=== PATIENT | female | born 1965 | race Caucasian/White ===

== ENCOUNTER → 2018-08-01 09:47 | Day surgery (SDC) | payer OTHER ==
--- NOTE | 2018-08-01 09:15 | HP ---
HISTORY AND PHYSICAL: DATE OF ADMISSION: 08/01/18. HISTORY OF PRESENT ILLNESS: Yanick is a 53-year-old active woman who slipped and twisted her right ankle sustaining a bimalleolar ankle fracture. This was a week ago. She was seen at [facility] emergency room and splinted and is here for followup. She has been mostly nonweightbearing. Pain is quite significant using the splint. She removed the splint herself and she felt it was not helping and she was worried about toe swelling. Her radiographs revealed a displaced bimalleolar ankle fracture, and she is scheduled for surgical repair through the office today. Yanick has a consistent habit of smoking a half to a full packet a day. She is otherwise not on any medication. She has an allergy to PENICILLIN and SULFA. She has been taking naproxen for pain. She denies issues with high blood pressure, pulmonary issues, high cholesterol. No hepatitis, no diverticulitis, no ulcers. No seizures, dizziness, or lightheadedness. No depression or anxiety. 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 She does smoke REVIEW OF SYSTEMS: Negative for all systems except previous fracture, some rashes, skin lesions, and seasonal allergies. PHYSICAL EXAMINATION GENERAL: Yanick is a healthy appearing 53-year-old with slight stigmata of smoking, in no acute distress. VITAL SIGNS: She is 5 feet 9 inches, 193 pounds. Blood pressure 130/70. NECK: Supple. LUNGS: Her chest exam is clear. Occasional end inspiratory wheezing. HEART: She has a regular rate to the cardiac exam without extra sounds noted. ABDOMEN: Her abdomen is large, flat, nontender, soft. EXTREMITIES: Exam shows her to have significant ecchymosis along her medial pickard. GENITOURINARY: Deferred. RECTAL: Deferred. SKIN: Intact. There is some displacement laterally through the ankle with some tenting of the skin medially. She has a warm sensate foot. DIAGNOSTIC STUDIES/DATA REVIEW: Her radiographs show a displaced bimalleolar ankle fracture. IMPRESSION AND PLAN: I gave Yanick a compressive Snow type dressing and tried to mold her 1 step into better varus. She has a displaced ankle fracture and will need to have this fixed in the next day or so. This will be scheduled through the office. [id number] #: [id number] [facility]
[~2018-08-01 09:47] MED LIST: Buffered Lidocaine 1% SYRIN* 1 ML/SYRINGE INTRADERM ONE; Bupivacaine 0.5%* 50 ML VIAL ONE; Clindamycin 900 MG/D5W BAG(*) 900 MG/50 ML BAG IVPB ONE; Dexamethasone IV* 4 MG/ML 1 ML (4 MG) ONE; Ketorolac INJ* 30 MG/ML 1 ML VIAL ONE; Lactated Ringers 1000 ML Bag* 1,000 ML IV SCH; Levalbuterol 0.63MG/3ML NEB* UNIT OF USE INH ONE; Lidocaine 2% PF * 5 ML VIAL ONE; Midazolam* 1 MG/ML 2 ML VIAL (2 MG) ONE; Naloxone* 0.4 MG/ML 1 ML VIAL IV PRN; Ondansetron INJ* 2 MG/ML VIAL IV PRN; Propofol* 10 MG/ML 20 ML BTL ONE; Sodium Citrate/Citric Acid* 15 ML UDC ONE; Sodium Citrate/Citric Acid* 15 ML UDC PO ONE; fentaNYL* 50 MCG/ML 2 ML VIAL (100 MCG VIAL) IV PRN; fentaNYL* 50 MCG/ML 2 ML VIAL (100 MCG VIAL) ONE; hydrALAZINE IV* 20 MG/ML VIAL ONE
[2018-08-01 15:08] VITALS: BP 157/87
--- NOTE | 2018-08-01 16:44 | OP ---
Operative Report - Blank - Operative Report Date of Operation: 08/01/18 Note: PATIENT: Yanick Ngo DATE OF : 1965 DATE OF SURGERY: 08/01/2018 SURGEON: Praful Garcia MD SUPERVISOR STONE: ANDREWS Horn, whos assistance was necessary for positioning, retraction, help with instrumentation, and closure. ANESTHESIOLOGIST: Dr. Sanchez PREOPERATIVE DIAGNOSIS: Right bimalleolar ankle fracture POSTOPERATIVE DIAGNOSIS: Right bimalleolar ankle fracture and distal tib-fib syndesmotic disruption. OPERATION: 1. Right bimalleolar ankle fracture open reduction and internal fixation. 2. Right distal tib-fib syndesmotic open reduction and internal fixation. ANESTHESIA: General IMPLANTS: [place] ankle fracture set plate and screws TOURNIQUET TIME: Less than 1 hour with a well-padded thigh tourniquet at 250mmHg SPECIMENS: none ESTIMATED BLOOD LOSS: minimal COMPLICATIONS: none STATUS: Stable from the operating room to the recovery room and then home. INDICATIONS FOR PROCEDURE: Yanick sustained a displaced right bimalleolar ankle fracture. She does have a history of a prior right bimalleolar ankle fracture, treated with ORIF and subsequent removal of hardware. Both operative and non operative treatment alternatives were reviewed. Further, the nature and risks of surgery were reviewed in careful detail. Our discussions regarding the risks of surgery included, but were not limited to, infection, wound problems, nerve injury, neuroma, RSD, persistent symptoms, blood clot, nonunion, malunion, post- traumatic arthritis, hardware failure, failure of the surgery, and even the remote chance of catastrophic complication, including loss of limb. DESCRIPTION OF PROCEDURE: The patient was seen in the preoperative holding unit and informed written consent was obtained. The appropriate extremity was marked. The patient was then brought to the operating room and carefully positioned on the operating room table. Anesthesia was induced. All bony prominences were padded with great care. A well-padded thigh tourniquet was placed. A chlorhexidine based pre- scrub was performed followed by a chloraprep prep and drape in standard sterile fashion. A surgical safety pause was then conducted in which we confirmed the appropriate patient, extremity, planned procedure, availability of equipment, indication and administration of prophylactic antibiotics, and DVT prophylaxis in the form of a compression boot on the non-surgical extremity. I began with Esmarch exsanguination of the limb and inflated the tourniquet. I then utilized a laterally based incision overlying the distal fibula. Great care was taken to protect the superficial peroneal nerve, which was not visualized within the field of view. I dissected down through the soft tissue layers to expose the distal fibula. I then exposed the fracture. Fracture hematoma was removed. There was extensive comminution and shortening at the fracture. Given the comminution, a direct reduction was not possible, based solely on the anatomy. I had to distract the distal fragment to restore fibular length, and this was judged fluoroscopically. This was then held provisionally with K wires. I placed a [place] ankle fracture plate laterally and then confirmed the reduction and the position of the plate fluoroscopically. I placed screws to hold the plate to the bone I made an approximately 4cm incision over the medial malleolus. The fracture was exposed and hematoma was removed. Reduction of the medial malleolar fracture was obtained with a pointed reduction clamp. I placed guidewires for 4.0 mm cannulated screws. I confirmed the position of the guidewires fluoroscopically. I then overdrilled both wires and placed two partially threaded 4.0 mm cannulated screws. I then removed the guidewires and obtained fluoroscopic images. At this point, I performed a stress fluoroscopic examination. I utilized a Cotton test, as well as an external rotation stress test, to evaluate the distal tib-fib syndesmosis. There was syndesmotic instability appreciated fluoroscopically. I then explored the syndesmosis directly and again appreciated abnormal motion. Therefore, I proceeded with open reduction and internal fixation of the distal tib-fib syndesmosis. We held the syndesmosis reduced and were pleased with syndesmotic reduction both clinically under direct visualization, as well as fluoroscopically. I utilized two 3.5 mm screws with good purchase. Final fluoroscopic images were obtained. At this point, we irrigated copiously and then closed in layers meticulously utilizing 3-0 Monocryl for the deep and subdermal layers and jamey for the skin. A sterile dressing was then applied followed by a splint with the ankle in a neutral position. The patient was then awakened from anesthesia and transferred to the recovery room in stable condition. There were no complications. All needle and sponge counts were correct at the end of the case. ATTESTATION: I attest I was present and scrubbed and performed the critical portions of the procedure myself. POSTOPERATIVE PLAN: The postop plan is for [id number] for an anticipated duration of 8 weeks. From months 2-3, WBAT in the boot. Months 3-4 in regular shoes with an ankle brace. Follow-up will be in 2 weeks. At that time we will likely transition into a [id number] short leg cast.
== END | disposition home or self-care (01) ==
LOC: OR 09:47
PROVIDERS: ATTEND Orthopaedic Surgery
DX: S82.841A Displaced bimalleolar fracture of right lower leg, initial encounter for closed fracture (principal); Z72.0 Tobacco use; W01.0XXA Fall on same level from slipping, tripping and stumbling without subsequent striking against object, initial encounter; Y92.9 Unspecified place or not applicable
CPT/HCPCS: 76000; A9270-GY; C1713; C1776; J0360; J1100; J1885; J2250; J2704; J3010